=== PATIENT | female | born 1980 | race Two or more races ===

== ENCOUNTER 2020-02-04 08:36 | Emergency (ER) | payer MEDICAID ==
[~2020-02-04] VITALS: Ht 170.2 cm; Wt 68.0 kg
--- NOTE | 2020-02-04 08:48 | NUR ---
pt ambulatory to ed c/o epigastric pain w. nausea and vomiting since last night s/o dinner and "a shot of whiskey." pt has stable vitals. 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 awaiting md carranza.
[2020-02-04] MEDS ORDERED: LIDOCAINE VISCOUS 2% UD 15 ML UDC MM ONE (09:00)
[2020-02-04] MEDS ORDERED: LIDOCAINE VISCOUS 2% UD 15 ML UDC ONE (09:00)
[2020-02-04] MEDS ORDERED: MAG HYDROX/AL HYDROX/SIMETH 30 ML UDC ONE (09:00)
[2020-02-04] MEDS ORDERED: MAG HYDROX/AL HYDROX/SIMETH 30 ML UDC PO ONE (09:00)
[2020-02-04] MEDS ORDERED: ONDANSETRON 4 MG TAB.RAPDIS SL ONE (09:00)
[2020-02-04] MEDS ORDERED: ONDANSETRON 4 MG TAB.RAPDIS ONE (09:01)
[2020-02-04] MEDS ORDERED: PANTOPRAZOLE 40 MG TABLET.DR PO ONE ×2 (09:23→09:30)
--- NOTE | 2020-02-04 09:33 | NUR ---
seen and evaluated by dr barrera. Patient discharged to home in stable condition. Written and verbal after care instructions given. Patient verbalizes understanding of instruction.
[2020-02-04 09:34] VITALS: BP 124/96
== END 2020-02-04 09:35 | disposition home or self-care (01) ==
LOC: ER 08:44
DX: K21.9 Gastro-esophageal reflux disease without esophagitis (principal)
CPT/HCPCS: 99284; Q0162